=== PATIENT | female | born 1950 | race American Indian/Alaskan Native ===

== ENCOUNTER 2017-07-15 08:16 | Outpatient (CLI) | payer MEDICARE ==
--- NOTE | 2017-07-16 06:22 | Ultrasound Report ---
FINAL REPORT EXAM: US PELVIC COMPLETE, US TRANSVAGINAL. HISTORY: POSTMENOPAUSAL VAGINAL BLEEDING. TECHNIQUE: Directed transabdominal and transvaginal ultrasound examination of the pelvis was performed. Transvaginal imaging was performed for better evaluation of the endometrium. No prior studies are available for comparison. FINDINGS: The uterus is anteverted and enlarged, measuring 11.3 x 6.9 x 14.1 cm. Nabothian cysts are seen in the cervix, measuring up to 1.0 cm. There is diffuse heterogeneity of the myometrium. There are multiple hypoechoic uterine masses, in keeping with fibroids, with the largest measuring 4.7 x 5.1 x 6.8 cm in the right body/fundus, 2.5 x 2.6 x 2.9 cm in the right anterior body, and 1.8 x 2.4 x 3.1 cm in the right lateral body (with associated calcifications). There is an additional rounded hyperechoic mass in the left body/fundus measuring 5.7 x 6.9 x 8.0 cm. This may represent a degenerating fibroid or possibly fatty lesion (such as lipoleiomyoma). The endometrium is moderately thickened, measuring up to 4.0 cm. There is a heterogeneous soft tissue structure in the endometrium measuring approximately 3.8 x 3.1 x 5.5 cm, which demonstrates internal vascularity. Neoplasm/malignancy should be excluded. Neither ovary is distinctly visualized. No other adnexal mass is seen. There is minimal pelvic free fluid in the posterior cul de sac. IMPRESSION: 1. Moderate thickening of the endometrium, measuring up to 4.0 cm, with abnormal heterogeneous vascular soft tissue measuring 3.8 x 3.1 x 5.5 cm. Neoplasm/malignancy should be excluded, and hysteroscopy with tissue sampling is suggested. 2. Enlarged uterus with multiple fibroids. Additional nonspecific 5.7 x 6.9 x 8.0 cm hyperechoic mass in the left body/fundus. This may represent degenerative fibroid or possibly fatty lesion. MRI examination may be useful for further characterization, if clinically warranted. 3. Nonvisualization of bilateral ovaries. 4. Minimal pelvic free fluid in the posterior cul de sac.
== END 2017-07-15 08:17 | disposition home or self-care (01) ==
LOC: US 08:16 → EDBD 08:16 → US 08:17
PROVIDERS: ATTEND Internal Medicine
DX: D25.9 Leiomyoma of uterus, unspecified (principal); N88.8 Other specified noninflammatory disorders of cervix uteri
CPT/HCPCS: 76830; 76856